=== PATIENT | female | born 1965 | race Two or more races ===

== ENCOUNTER 2023-11-15 08:31 | Emergency (ER) | payer BC ==
[~2023-11-15] VITALS: Ht 160 cm; Wt 108.0 kg
[2023-11-15 08:41] VITALS: BP 161/108; TEMP 98
[2023-11-15] MEDS ORDERED: MORPHINE SULFATE INJ 4 MG/ML DISP.SYRIN ONE (08:55)
[2023-11-15] MEDS ORDERED: ONDANSETRON 4 MG TAB.RAPDIS ONE (08:55)
[2023-11-15] MEDS: ONDANSETRON 4 MG TAB.RAPDIS SL ONE (09:00)
[2023-11-15] MEDS: MORPHINE SULFATE INJ 4 MG/ML DISP.SYRIN IM ONE (09:01)
[2023-11-15] MEDS ORDERED: HYDR-3976 PO (09:57)
[2023-11-15] MEDS ORDERED: ONDA4TAB5 PO (09:57)
[2023-11-15] MEDS ORDERED: NALO4SPR BNOSTRILS (09:57)
[2023-11-15 10:20] VITALS: O2SAT 98
== END 2023-11-15 10:21 | disposition home or self-care (01) ==
LOC: ER 08:31
DX: M54.12 Radiculopathy, cervical region (principal); I10 Essential (primary) hypertension; E11.9 Type 2 diabetes mellitus without complications; Z79.899 Other long term (current) drug therapy; Z88.0 Allergy status to penicillin
CPT/HCPCS: 99283; 96372; 93005; J2270; Q0162